=== PATIENT | male | born 1990 | race African-American/Black ===

== ENCOUNTER 2017-05-18 14:54 | Emergency (ER) | payer BC ==
[~2017-05-18] VITALS: Ht 180.3 cm; Wt 65.8 kg
[2017-05-18 14:56] VITALS: BP 114/67
[2017-05-18 15:40] LABS: URINE BILIRUBIN NEGATIVE (Negative); URINE BLOOD NEGATIVE (Negative); URINE COLOR YELLOW; URINE GLUCOSE-RANDOM* NEGATIVE (Negative); URINE KETONES 1+ (Negative); URINE NITRITE NEGATIVE (Negative); URINE PROTEIN (DIPSTICK) NEGATIVE (Negative)
[2017-05-18 16:04] LABS: SQUAMOUS 0-3 Few /LPF (0-3); URINE WBC 6-15 Few /HPF (0-5)
[2017-05-18 16:05] LABS: BACTERIA 1-9 Few /HPF (None Seen)
== END 2017-05-18 16:19 | disposition home or self-care (01) ==
LOC: ER 14:54
PROVIDERS: Nurse Practitioner Family
DX: N34.2 Other urethritis (principal)

== ENCOUNTER 2019-02-22 11:49 | Emergency (ER) | payer BC ==
[~2019-02-22] VITALS: Ht 180.3 cm; Wt 59.0 kg
[2019-02-22] MEDS ORDERED: MEDROLDOSEPACK PO (12:20)
[2019-02-22 12:33] VITALS: BP 110/72
== END 2019-02-22 12:36 | disposition home or self-care (01) ==
LOC: ER 11:49
DX: S20.462A Insect bite (nonvenomous) of left back wall of thorax, initial encounter (principal); S40.262A Insect bite (nonvenomous) of left shoulder, initial encounter; S80.262A Insect bite (nonvenomous), left knee, initial encounter; S80.261A Insect bite (nonvenomous), right knee, initial encounter; W57.XXXA Bitten or stung by nonvenomous insect and other nonvenomous arthropods, initial encounter; Y93.89 Activity, other specified; Y92.89 Other specified places as the place of occurrence of the external cause; Y99.8 Other external cause status